=== PATIENT | female | born 2000 | race Caucasian/White ===

== ENCOUNTER 2018-11-13 23:11 | Emergency (ER) | payer OTHER ==
[2018-11-13 23:28] VITALS: BP 137/79
--- NOTE | 2018-11-13 23:30 | ED Physician Documentation ---
General Adult - HISTORIAN Historian: patient - HPI Stated Complaint: fever and right swollen ear lobe Chief Complaint: Ear Complaints Onset: days ago (2) Timing: still present Severity: moderate Further Comments: yes (She states she had a cellulitis on the left ear two weeks ago and now in last few days right ear has had similar swelling and pain. She last took an OTC med for fever about 6 hours ago. She has no other complaints) Last known Well Code/Unknown Code: Unknown - ROS CONST: fever, recent illness EYES/ENT: none CVS/RESP: none MS/SKIN/LYMPH: none NEURO/PSYCH: denies: headache - PAST HX Past History: none Immunizations: UTD Allergies/Adverse Reactions: Allergies Allergy/AdvReac Type Severity Reaction Status Date / Time No Known Drug Allergies Allergy Verified 11/13/18 23:26 Home Medications: Ambulatory Orders Medication Instructions Recorded Etonogestrel [Nexplanon] 68 mg SQ DIRECTED 11/13/18 - SOCIAL HX Smoking History: cigarettes Alcohol Use: none Drug Use: none - FAMILY HX Family History: No - VITAL SIGNS Vital Signs: Vital Signs Temp Pulse Resp BP Pulse Ox 100.5 F H 121 H 16 137/79 99 11/13/18 23:20 11/13/18 23:20 11/13/18 23:20 11/13/18 23:20 11/13/18 23:20 - REVIEWED ASSESSMENTS Nursing Assessment Reviewed: Yes Vitals Reviewed: Yes General Adult Physical Exam - PHYSICAL EXAM GENERAL APPEARANCE: no distress EENT: eye inspection normal, pharynx normal, no signs of dehydration, KIZZY, other (extenal right ear swollen with yellow crusting redness and mild warmth to touch ) RESPIRATORY: no resp distress, chest non-tender, breath sounds normal CVS: reg rate & rhythm, heart sounds normal ABDOMEN: soft, no distension, non-tender BACK: normal inspection SKIN: warm/dry EXTREMITIES: non-tender NEURO: oriented X3 Discharge Clincal Impression: Cellulitis Qualifiers: Site of cellulitis: head Qualified Code(s): L03.811 - Cellulitis of head [any part, except face] Referrals: Primary Doctor,No [Primary Care Provider] - 2 Days Comments: 1. Bactrim DS take 1 by mouth twice daily x 10 days 2. Keep area clean and dry 3. Cool compress to ear 4. OTC meds as directed as needed for symptom relief 5. See PCP in 2 days 6. Return to ER for any increasing concerns Condition: Stable Decision to Admit: NO Date of Decison to Admit: 11/13/18 Decision Time: 23:50
[2018-11-13] MEDS: SULFAMETHOXAZOLE/TRIMETHOPRIM 800/160MG TAB PO ONE (23:47)
== END 2018-11-13 23:53 | disposition home or self-care (01) ==
LOC: ED 23:11
DX: L03.811 Cellulitis of head [any part, except face] (principal)
CPT/HCPCS: A9270